=== PATIENT | female | born 2005 | race Two or more races ===

== ENCOUNTER → 2024-10-09 | Outpatient (BNVA) | payer MEDICAID, SELFPAY | END | disposition home or self-care (01) | PROVIDERS: PCP Nurse Practitioner Family; Referring Provider Nurse Practitioner Family; Visit Provider Nurse Practitioner Family | DX: Z02.0 Encounter for examination for admission to educational institution (principal); Z11.7 Encounter for testing for latent tuberculosis infection | CPT/HCPCS: 99212; A9270 ==

== ENCOUNTER → 2025-01-12 | Outpatient (BNVA) | payer MEDICAID, SELFPAY | END | disposition home or self-care (01) | PROVIDERS: PCP Nurse Practitioner Family; Referring Provider Nurse Practitioner Family; Visit Provider Nurse Practitioner Family | DX: B35.1 Tinea unguium (principal) | CPT/HCPCS: 99213 ==

== ENCOUNTER → 2025-01-24 | Outpatient (BNVA) | payer MEDICAID, SELFPAY | END | disposition home or self-care (01) | PROVIDERS: PCP Nurse Practitioner Family; Referring Provider Nurse Practitioner Family; Visit Provider Nurse Practitioner Family | DX: B35.1 Tinea unguium (principal); E55.9 Vitamin D deficiency, unspecified; Z71.2 Person consulting for explanation of examination or test findings; R94.5 Abnormal results of liver function studies | CPT/HCPCS: 99213 ==

== ENCOUNTER 2025-07-25 14:50 | Emergency (ER) | payer MEDICAID, SELFPAY ==
[2025-07-25 15:30] VITALS: BP 130/89; PULSE 96; RESP 16; TEMP 37.3; O2SAT 99; BMI 30.9
--- NOTE | 2025-07-25 15:42 | XR_ITS ---
EXAMINATION: Ankle, right 3 views . Technique: Ankle AP, oblique, lateral 3 views Date and time of exam: July 25, 2025 1548 hours INDICATIONS: Right ankle pain beginning today. FINDINGS: Lateral malleolar soft tissue swelling. No fracture or dislocation IMPRESSION: No ankle fracture or dislocation
--- NOTE | 2025-07-25 15:42 | XR_ITS ---
Examination: Foot, right, 3 views Technique: AP, oblique, lateral views foot, 3 views Date and time of exam: July 25, 2025 1548 hours INDICATIONS: Injury to the foot today, foot pain. FINDINGS: No acute fracture. No dislocation No foreign body IMPRESSION: No acute fracture
--- NOTE | 2025-07-25 17:37 | EDNOTE_ITS ---
<Statement entered by Lily Myers MD - 08/13/25 06:06> As co-signing physician, I was present and available for consult prn. I concur with the plan and care as documented by the midlevel provider. Lower Extremity Injury RME/HPI General Chief Complaint: Extremity Injury, Lower Stated Complaint: RIGHT ANKLE PAIN Time Seen by Provider: 07/25/25 16:46 Arrival date/time: 07/25/25 14:50 20-year-old female presents to the Emergency Department of complaint of right ankle pain patient reports accidentally twisted right ankle coming down the stairs today Limitations: no limitations Related Data Previous Rx's ?Medication ?Instructions ?Recorded ibuprofen 800 mg tablet 800 mg PO TID PRN pain #30 t abs 07/25/25 Allergies Allergy/AdvReac Type Severity Reaction Status Date / Time No Known Allergies Allergy Verified 01/24/25 16:04 Review of Systems Review of Systems Systems Reviewed: All systems reviewed, normal except as documented Constitutional Constitutional: Reports system reviewed and no additional complaints, except as documented, Denies fever(s) and Denies headache(s) Eyes Eyes: Reports system reviewed and no additional complaints, except as documented and Denies blurry vision ENT Ears, Nose, Mouth, and Throat: Reports system reviewed and no additional complaints, except as documented, Denies headache(s), Denies nasal congestion and Denies nasal discharge Cardiovascular Cardiovascular: Reports system reviewed and no additional complaints, except as documented, Denies chest pain and Denies dyspnea Respiratory Respiratory: Reports system reviewed and no additional complaints, except as documented, Denies chest congestion, Denies cough and Denies dyspnea Gastrointestinal Gastrointestinal: Reports system reviewed and no additional complaints, except as documented and Denies abdominal pain Musculoskeletal Musculoskeletal: Reports system reviewed and no additional complaints, except as documented, Denies deformity, Denies numbness, Reports stiffness and Denies tingling Integumentary/Breasts Skin/Breast: Reports system reviewed and no additional complaints, except as documented and Denies rash Neurologic Neurologic: Reports system reviewed and no additional complaints, except as documented, Reports as per HPI, Denies headache(s), Denies numbness and Denies tingling Past Medical History Social History SMOKING STATUS: Never smoker SECOND HAND EXPOSURE: No ED Exam General Limitations: Present no limitations General appearance: Present alert and in no apparent distress Head Head exam: Present atraumatic Eye Eye exam: Present normal appearance, PERRL and EOMI ENT ENT exam: Present normal exam, normal oropharynx and mucous membranes moist Neck Neck exam: Present normal inspection, full ROM and trachea midline Chest Chest inspection: Present normal inspection and symmetric chest wall rise Respiratory Respiratory exam: Present normal lung sounds bilaterally Cardiovascular Cardiovascular exam: Present regular rate, normal rhythm and normal heart sounds Abdominal Exam Abdominal exam: Present soft and normal bowel sounds Extremities Exam Extremities exam: Present full ROM, tenderness, normal capillary refill and joint swelling Back Exam Back exam: Present normal inspection and full ROM Neurological Exam Neurological exam: Present alert, oriented X3 and CN II-XII intact Psychiatric Psychiatric exam: Present normal affect and normal mood Skin Skin exam: Present warm, dry, intact and normal color Course Quality Measures none Orders Category Date Time Status Crutches .NOW Care 07/25/25 16:47 Completed benitez wrap [Splint / Immobilizer] STAT Care 07/25/25 16:47 Completed XR ankle comp RT min 3V Stat Exams 07/25/25 15:42 Completed XR foot comp RT min 3V Stat Exams 07/25/25 15:42 Completed Vital Signs Vital signs: Vital Signs Temperature 99.1 F 07/25/25 15:30 Pulse Rate 96 07/25/25 15:30 Respiratory Rate 16 07/25/25 15:30 Blood Pressure 130/89 H 07/25/25 15:30 Pulse Oximetry (%) 99 07/25/25 15:30 Oxygen Delivery Method Room Air 07/25/25 15:30 O2 saturation 99% room air within normal limits Extremity Injury, Lower MDM Narrative MDM Narrative:: 20-year-old female presents to the Emergency Department of complaint of right ankle pain patient reports accidentally twisted right ankle coming down the stairs today On exam patient is tenderness and swelling to the right ankle X-ray of the right ankle and right foot obtained no acute fractures dislocations noted Patient placed in Benitez wrap given crutches Patient instructed to remain nonweightbearing Patient discharged home in no distress to follow-up with primary care doctor in the next 24 to 48 hours and for any worsening symptoms to return to the ER immediately Patient data External records reviewed:: [facility] previous records Clinical information provided by:: patient Social determinants that could affect healthcare access:: none Patient has the following chronic illnesses:: None How is presenting disease/condition affected by chronic disease/condition?: no chronic disease Evaluation data The following diagnostics were reviewed and interpreted by me:: radiology exam(s) Lab and/or radiology exams considered but not ordered:: Radiology obtained Interpretation Summary: Reviewed by me Medications / Prescriptions Medications or Prescriptions considered but not ordered:: Given Medication administrations:: Given Consultations Consultation(s) initiated? (list below): No Diagnosis Extremity Injury, Lower Differential Diagnosis: ankle sprain and strain, acute internal derangement of knee and ankle fracture Most likely diagnosis given after review of the tests above:: Ankle sprain Admission Indicated Admission indicated?: not indicated Admission Request Was there a request for admission?: No Disposition Plan Disposition Plan: Discharge Discharge Attestation Discharge Attestation: The patient and all family members were given an opportunity to ask questions and understood the discharge instructions. Discharge instructions specifically effects, indications for sooner follow up or return to the emergency department, and the expected course of current diagnosis. Patient condition: Stable Discharge Plan Plan Patient Disposition: HOME (Self Care) Discharge Disposition comment: Stable Prescriptions/Referrals Prescriptions/Med Rec: New ibuprofen 800 mg tablet 800 mg PO TID PRN (Reason: pain) Qty: 30 0RF Referrals: [facility] EKG MONITOR,Jojo Parr EKG MONITOR [Primary Care Provider, Family Practice] - 07/26/25 Problem List Clinical Impression: Sprain of ankle, right Patient/Caregiver Discharge Instructions Education Materials: ED BENITEZ Wrap Additional Instructions: Please follow up with your primary care doctor in the next 24-48hrs for any worsening symptoms return here immediately Print Language: Greenlandic Stand Alone Forms: Deborah Award Info., Work/School Release, Patient Portal Info Letter PA/ENTRY EXAMINER Supervising Physician ESTEPHANIA/TESS Supervising Physician: Dr. myers
== END 2025-07-25 17:18 | disposition home or self-care (01) ==
PROVIDERS: Emergency Provider Emergency Medicine; PCP Nurse Practitioner Family
DX: S93.401A Sprain of unspecified ligament of right ankle, initial encounter (principal); X50.1XXA Overexertion from prolonged static or awkward postures, initial encounter
CPT/HCPCS: 73610; 73630; 99284

== ENCOUNTER → 2025-07-30 | Outpatient (BNVA) | payer MEDICAID, SELFPAY | END | disposition home or self-care (01) | PROVIDERS: PCP Nurse Practitioner Family; Referring Provider Nurse Practitioner Family; Visit Provider Nurse Practitioner Family | DX: S93.401A Sprain of unspecified ligament of right ankle, initial encounter (principal); X50.1XXA Overexertion from prolonged static or awkward postures, initial encounter; Z23 Encounter for immunization | CPT/HCPCS: 90471; 90715; 99213 ==

== ENCOUNTER → 2025-08-01 | Outpatient (CLI) | payer MEDICAID, SELFPAY ==
--- NOTE | 2025-08-01 | XR_ITS ---
Examination: Right ankle 2 views Technique one AP lateral right ankle 2 views Date and time: August 01, 2025 at 1018 hours INDICATIONS: Injury to the ankle one week ago, ankle pain. FINDINGS: No fracture or dislocation. No foreign body IMPRESSION: No fracture or dislocation
--- NOTE | 2025-08-01 09:52 | XR_ITS ---
Examination: Tibia-Fibula, right , 2 views Technique: Tibia-fibula AP lateral 2 views Date and time of exam: August 01, 2025 1014 hours INDICATIONS: Injury to lower leg one week ago, lower leg pain. FINDINGS: No fracture or dislocation. No foreign body IMPRESSION: No fracture or dislocation
--- NOTE | 2025-08-01 09:52 | XR_ITS ---
Examination: Foot, right, 3 views Technique: AP, oblique, lateral views foot, 3 views Date and time of exam: July 28 40,025 1014 hours INDICATIONS: Injury to the foot one week ago, foot pain FINDINGS: Soft tissue swelling dorsum of the foot No acute fracture No dislocation No foreign body IMPRESSION: No acute fracture
== END | disposition home or self-care (01) ==
PROVIDERS: PCP Nurse Practitioner Family; Referring Provider Nurse Practitioner Family; Visit Provider Nurse Practitioner Family
DX: S93.401A Sprain of unspecified ligament of right ankle, initial encounter (principal); S99.921A Unspecified injury of right foot, initial encounter; S89.91XA Unspecified injury of right lower leg, initial encounter; X58.XXXA Exposure to other specified factors, initial encounter
CPT/HCPCS: 73590; 73600; 73630

== ENCOUNTER → 2025-08-03 | Outpatient (BNVA) | payer MEDICAID, SELFPAY | END | disposition home or self-care (01) | PROVIDERS: PCP Nurse Practitioner Family; Referring Provider Nurse Practitioner Family; Visit Provider Nurse Practitioner Family | DX: S93.401A Sprain of unspecified ligament of right ankle, initial encounter (principal); Z71.2 Person consulting for explanation of examination or test findings | CPT/HCPCS: 99213 ==

== ENCOUNTER → 2025-08-13 | Outpatient (BNVA) | payer MEDICAID, SELFPAY | END | disposition home or self-care (01) | PROVIDERS: PCP Nurse Practitioner Family; Referring Provider Nurse Practitioner Family; Visit Provider Nurse Practitioner Family | DX: S93.401A Sprain of unspecified ligament of right ankle, initial encounter (principal); X58.XXXA Exposure to other specified factors, initial encounter; Z23 Encounter for immunization | CPT/HCPCS: 90471; 90686; 99213 ==

== ENCOUNTER → 2025-08-17 | Outpatient (BNVA) | payer MEDICAID, SELFPAY | END | disposition home or self-care (01) | PROVIDERS: PCP Nurse Practitioner Family; Referring Provider Nurse Practitioner Family; Visit Provider Nurse Practitioner Family | DX: S93.401A Sprain of unspecified ligament of right ankle, initial encounter (principal); X58.XXXA Exposure to other specified factors, initial encounter | CPT/HCPCS: 99214 ==

== ENCOUNTER → 2025-08-20 | Outpatient (BNVA) | payer MEDICAID, SELFPAY | END | disposition home or self-care (01) | PROVIDERS: PCP Nurse Practitioner Family; Referring Provider Nurse Practitioner Family; Visit Provider Nurse Practitioner Family | DX: Z12.4 Encounter for screening for malignant neoplasm of cervix (principal); N76.0 Acute vaginitis | CPT/HCPCS: 81001; 99214; Q0091 ==

== ENCOUNTER → 2025-09-05 | Outpatient (BNVA) | payer MEDICAID, SELFPAY | END | disposition home or self-care (01) | PROVIDERS: PCP Nurse Practitioner Family; Referring Provider Nurse Practitioner Family; Visit Provider Nurse Practitioner Family | DX: Z12.4 Encounter for screening for malignant neoplasm of cervix (principal); N76.0 Acute vaginitis; Z71.2 Person consulting for explanation of examination or test findings | CPT/HCPCS: 99213 ==

== ENCOUNTER → 2025-09-12 | Outpatient (BNVA) | payer MEDICAID, SELFPAY | END | disposition home or self-care (01) | PROVIDERS: PCP Nurse Practitioner Family; Referring Provider Nurse Practitioner Family; Visit Provider Nurse Practitioner Family | DX: N76.0 Acute vaginitis (principal) ==

== ENCOUNTER → 2025-09-19 | Outpatient (BNVA) | payer MEDICAID, SELFPAY | END | disposition home or self-care (01) | PROVIDERS: PCP Nurse Practitioner Family; Referring Provider Nurse Practitioner Family; Visit Provider Nurse Practitioner Family | DX: Z00.01 Encounter for general adult medical examination with abnormal findings (principal); E55.9 Vitamin D deficiency, unspecified; Z13.220 Encounter for screening for lipoid disorders; Z13.1 Encounter for screening for diabetes mellitus; E66.9 Obesity, unspecified; Z71.85 Encounter for immunization safety counseling; Z71.2 Person consulting for explanation of examination or test findings; N76.0 Acute vaginitis; Z11.3 Encounter for screening for infections with a predominantly sexual mode of transmission; Z68.31 Body mass index [BMI] 31.0-31.9, adult | CPT/HCPCS: 99173; 99395; G0439 ==

== ENCOUNTER → 2025-10-10 | Outpatient (BNVA) | payer MEDICAID, SELFPAY | END | disposition home or self-care (01) | PROVIDERS: PCP Nurse Practitioner Primary Care; Referring Provider Nurse Practitioner Primary Care; Visit Provider Nurse Practitioner Primary Care | DX: E55.9 Vitamin D deficiency, unspecified (principal); Z71.2 Person consulting for explanation of examination or test findings | CPT/HCPCS: 99213 ==